=== PATIENT | male | born 2000 | race Hispanic/Latino ===

== ENCOUNTER 2021-07-04 21:07 | Emergency (ER) | payer SELFPAY ==
[2021-07-04 21:12] VITALS: BP 147/70; PULSE 74; RESP 20; TEMP 36.9; O2SAT 100
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
[2021-07-05] MEDS: TET,DIPH,PERTUSS(ACELL),VAC/PF 0.5 ML SYRINGE IM (00:22)
[2021-07-05] MEDS: HYDROCODONE/ACET 5/325 PREPACK 1 BOTTLE MISC (00:22)
[2021-07-05 00:40] VITALS: BP 140/68; PULSE 74; RESP 20; O2SAT 100
== END 2021-07-05 00:48 | disposition home or self-care (01) ==
PROVIDERS: Emergency Provider Emergency Medicine
DX: S52.124A Nondisplaced fracture of head of right radius, initial encounter for closed fracture (principal); V19.9XXA Pedal cyclist (driver) (passenger) injured in unspecified traffic accident, initial encounter; Z23 Encounter for immunization
CPT/HCPCS: 73080; 90471; 99283; 90715